=== PATIENT | male | born 1980 | race African-American/Black ===

== ENCOUNTER 2019-05-16 | Emergency (ER) | payer OTHER ==
[2019-05-16] MEDS ORDERED: AUGMENTIN500TAB PO (09:46)
== END 2019-05-16 09:54 | disposition home or self-care (01) ==
DX: J01.90 Acute sinusitis, unspecified (principal); J02.9 Acute pharyngitis, unspecified

== ENCOUNTER 2020-06-23 20:29 | Emergency (ER) | payer OTHER ==
[~2020-06-23] VITALS: Ht 170.2 cm; Wt 95.5 kg
[~2020-06-23 20:29] MED LIST: AUGMENTIN500TAB PO
[2020-06-23] MEDS ORDERED: PERCOCET 5/325M1 TAB PO (22:10)
[2020-06-23] MEDS ORDERED: ORPHENADRINE100 MG PO (22:10)
[2020-06-23 22:22] VITALS: BP 152/82
== END 2020-06-23 22:22 | disposition home or self-care (01) ==
LOC: ED 20:29
DX: M79.18 Myalgia, other site (principal)

== ENCOUNTER 2020-07-10 23:40 | Emergency (ER) | payer OTHER ==
[~2020-07-10] VITALS: Ht 170.2 cm; Wt 98.8 kg
[~2020-07-10 23:40] MED LIST changes: +ORPHENADRINE100 MG PO; +PERCOCET 5/325M1 TAB PO
[2020-07-11] MEDS ORDERED: DOXYCYCL HYC100 MG PO (00:23)
[2020-07-11 00:36] VITALS: BP 138/72
== END 2020-07-11 00:36 | disposition home or self-care (01) ==
LOC: ED 23:40
DX: L02.01 Cutaneous abscess of face (principal)

== ENCOUNTER 2023-12-10 18:31 | Emergency (ER) | payer SELFPAY ==
[~2023-12-10] VITALS: Ht 170.2 cm; Wt 106.0 kg
[~2023-12-10 18:31] MED LIST changes: +AMOX/K CLAV875 M1 PO; +DOXYCYCL HYC100 MG PO; +FLONASE AL50 MCG/ACT IN; +MEDDOSEPAK PO; +NASACORT A55 MCG/ACT IN
[2023-12-10 18:52] VITALS: BP 161/98
[2023-12-10] MEDS ORDERED: NAPROXEN 250 MG/TAB PO ONE (19:05)
[2023-12-10 19:31] VITALS: BP 147/90
[2023-12-10 20:01] VITALS: BP 153/92
[2023-12-10] MEDS ORDERED: ZPAK PO (20:04)
[2023-12-10] MEDS ORDERED: ZYRTEC10 MG PO (20:04)
[2023-12-10] MEDS ORDERED: MEDDOSEPAK PO (20:04)
== END 2023-12-10 20:25 | disposition home or self-care (01) | DRG 153 ==
LOC: ED 18:31
DX: J06.9 Acute upper respiratory infection, unspecified (principal); Z20.822 Contact with and (suspected) exposure to COVID-19